=== PATIENT | male | born 2000 | race Caucasian/White ===

== ENCOUNTER 2020-05-29 09:13 | Emergency (ER) | payer BC ==
[~2020-05-29] VITALS: Ht 182.9 cm; Wt 84.1 kg
[2020-05-29 10:19] LABS: HEMOGLOBIN 14.8 g/dl (12.5-16.1); MEAN CELL VOLUME 87 fl (80.0-95.0); MEAN CORPUSCULAR HEMOGLOBIN 31 pg (26.0-32.0); MEAN CORPUSCULAR HGB CONC 35 g/dl (33.0-37.0); MEAN PLATELET VOLUME 9.6 fl (7.4-10.4); PLATELET COUNT 192 K/mm3 (130-400); RED BLOOD COUNT 4.81 M/mm3 (4.20-5.60)
[2020-05-29 10:20] LABS: INR 1.2 (0.8-3.0); PROTHROMBIN TIME 13.5 SECONDS (9.7-12.8)
[2020-05-29 10:22] LABS: PARTIAL THROMBOPLASTIN TIME 30.4 SECONDS (26.0-37.0)
[2020-05-29 10:54] LABS: ALBUMIN 4.6 gm/dL (3.5-5.0); BILIRUBIN,TOTAL 0.5 mg/dL (0.0-1.0); C-REACTIVE PROTEIN 4.1 mg/dL (0.0-0.9); CALCIUM 9.2 mg/dL (8.4-10.2); CREATININE, serum 0.94 (0.66-1.25); POTASSIUM 3.9 mmol/L (3.4-5.0); TOTAL PROTEIN 8.4 gm/dL (6.4-8.2)
[2020-05-29] MEDS ORDERED: ZOFRAN ODT4 MG PO (11:03)
[2020-05-29 11:08] LABS: BAND 2 % (0-10); NEUTROPHILS 35 % (42.0-75.2)
[2020-05-29 11:09] LABS: LYMPHOCYTE 59 % (20.0-51.0); PLATELET ESTIMATE NORMAL (NORMAL)
[2020-05-29 11:27] VITALS: BP 132/70; PULSE 99; TEMP 98.2
== END 2020-05-29 11:30 | disposition home or self-care (01) ==
LOC: COL.ER 09:13
PROVIDERS: Physician Assistant
DX: B27.90 Infectious mononucleosis, unspecified without complication (principal)
CPT/HCPCS: J1100; J2405; J7030